=== PATIENT | female | born 1955 | race Caucasian/White ===

== ENCOUNTER → 2016-09-13 | Outpatient (CLI) | payer OTHER ==
[~2016-09-13] MED LIST: AMBI10TA PO; ASCO500C PO; ATEN25TA PO; CELE200C PO; CYMB30CA PO; DIAZ5 PO; DONE5TAB7 PO; ESTR0.5T PO; ESTR42.5V VAGINAL; FURO20TA PO; GABA400C5 PO; GABA800T PO; GEMF600T PO; HYDR-3534 PO; HYDR25TA5 PO; KEPP10002 PO; VITA250T3 PO
[2016-09-13 15:31] LABS: AUTOMATED NEUTROPHIL # 2.7 TH/MM3 (1.8-7.7); BASOPHIL # 0.1 TH/MM3 (0-0.2); BASOPHIL % 1.3 % (0.0-2.0); EOSINOPHIL # 0.1 TH/MM3 (0-0.4); EOSINOPHIL % 1.8 % (0.0-4.0); HEMATOCRIT 41.2 % (35.0-46.0); HEMO FLAGS DIFF FINAL; LYMPH % 40.1 % (9.0-44.0); LYMPHOCYTE # 2.2 TH/MM3 (1.0-4.8); MEAN CELL VOLUME 93.3 FL (80.0-100.0); MEAN CORPUSCULAR HEMOGLOBIN 31.5 PG (27.0-34.0); MEAN CORPUSCULAR HGB CONC 33.7 % (32.0-36.0); MONO % 7.2 % (0.0-8.0); NEUT % 49.6 % (16.0-70.0); PLATELET COUNT 337 TH/MM3 (150-450); RED BLOOD COUNT 4.41 MIL/MM3 (4.00-5.30); RED CELL DISTRIBUTION WIDTH 12.7 % (11.6-17.2); WHITE BLOOD COUNT 5.4 TH/MM3 (4.0-11.0)
[2016-09-13 15:32] LABS: BACTERIA, URINE RARE /hpf; BLOOD, URINE NEG (NEG); COMMENT (UR) CULT NOT INDICATED; CULTURE IF INDICATED CULT NOT INDICATED; GLUCOSE,URINE NEG (NEG); KETONE, URINE NEG (NEG); NITRITE,URINE NEG (NEG); PH, URINE 5.5 (5.0-8.5); SQUAMOUS EPITHELIAL CELL URINE 1 /hpf (0-5); URINE COLOR LIGHT-YELLOW (YELLW/STRAW)
[2016-09-13 15:53] LABS: ANION GAP 7 MEQ/L (5-15); AST (GOT) 16 U/L (15-37); BLOOD UREA NITROGEN 18 MG/DL (7-18); CHLORIDE 102 MEQ/L (98-107); GLOMERULAR FILTRATION RATE 74 ML/MIN (>89); GLUCOSE,FASTING 88 MG/DL (74-99); POTASSIUM 3.9 MEQ/L (3.5-5.1); SODIUM (NA) 140 MEQ/L (136-145)
[2016-09-13 15:56] LABS: ALKALINE PHOSPHATASE 93 U/L (45-117); ALT (GPT) 32 U/L (10-53); TOTAL BILIRUBIN ADULT 0.3 MG/DL (0.2-1.0)
--- NOTE | 2016-09-14 20:19 | EKG ---
Date Performed: 09/13/2016 Time Performed: 14:10:33 PTAGE: 61 years EKG: Sinus rhythm WITH SINUS ARRHYTHMIA LOW QRS VOLTAGE IN PRECORDIAL LEADS DELAYED R WAVE PROGRESSION BORDERLINE ECG Compared to prior tracing no significant change DOCTOR: Devorah Garcia Interpretating Date/Time 09/14/2016 20:19:03
== END ==
LOC: CPRE 13:36
PROVIDERS: ATTEND Obstetrics & Gynecology Gynecology
DX: Z01.810 Encounter for preprocedural cardiovascular examination (principal); Z01.812 Encounter for preprocedural laboratory examination; N81.10 Cystocele, unspecified; I49.8 Other specified cardiac arrhythmias
CPT/HCPCS: 36415; 80053; 81001; 85025; 93005

== ENCOUNTER → 2016-09-21 | Day surgery (SDC) | payer OTHER ==
--- NOTE | 2016-09-13 14:44 | MH ---
cc: DEANA SANTILLAN MD DATE OF ADMISSION: 09/21/2016 DATE OF : 1955 REASON FOR ADMISSION Anterior repair. HISTORY OF PRESENT ILLNESS The patient is a 61-year-old white female, 4, para 4, who has had issues with pelvic organ prolapse in the past. Last year she had a posterior repair and did well with that except she had a seizure postoperatively. She noted a recurrence of pelvic pressure, was examined and found to have anterior compartment prolapse. She tried a pessary and that did not work well and she wants to proceed now with surgical correction. PAST MEDICAL HISTORY 1. Seizure disorder; last seizure was at least 6 months ago. Presently on antiseizure meds. 2. Hypertension. 3. Depression. 4. Hypercholesterolemia. ALLERGIES 1. LATEX. 2. PENICILLIN. 3. ASPIRIN. 4. CODEINE. 5. CLINDAMYCIN. MEDICATIONS 1. Hydrocodone p.r.n. 2. Celebrex 20 mg q. day. 3. Estradiol 0.5 mg q. day. 4. Fluoxetine 30 mg q. day. 5. Ambien 10 mg q.h.s. 6. Keppra 1000 mg t.i.d. 7. Gabapentin 400 mg t.i.d. PAST SURGICAL HISTORY 1. Tonsillectomy. 2. Cholecystectomy. 3. Tubal ligation. 4. Hysterectomy. 5. Posterior repair. FAMILY HISTORY Noncontributory. SOCIAL HISTORY [id number] smoking history, not presently smoking for the last year. OB HISTORY Four vaginal deliveries. REVIEW OF SYSTEMS As above. No chest pain, orthopnea, PND. No nausea, vomiting, fever or chills. No vaginal bleeding or discharge. The main issue is pelvic pressure and discomfort. Otherwise a 14-point review is negative. PHYSICAL EXAMINATION VITAL SIGNS: She is afebrile. Vital signs stable. Weight is 154, height 5.3, BMI 27.5. Blood pressure 140/80. GENERAL: The patient is alert and oriented, in no acute distress. No sign of cognitive dysfunction or depression. HEENT: Within normal limits. NECK: Supple. No JVD. CHEST: Clear. HEART: Regular rhythm. ABDOMEN: Soft, nontender. No hepatosplenomegaly. BACK: No CVA tenderness. PELVIC: Exam will be detailed under anesthesia. In the office we note POP-Q score Aa is +1; Ap is -3; point C is -5. Further exam under anesthesia. EXTREMITIES: Normal. SKIN: Without rashes. NEUROLOGIC: Nonfocal. No DVT signs. ASSESSMENT Patient with anterior compartment prolapse, symptomatic, stage II. We discussed options for management and treatment. She has failed pessary management and wants to proceed with surgical correction. She is aware of the risks, benefits and alternatives of planned procedure including damage to surrounding organs, bleeding, infection, dyspareunia, de sunil stress incontinence and failure of repair. She is also aware that the perioperative state is at an increased risk for seizure disorder. PLAN At this point we anticipate outpatient procedure. We will use DVT prophylaxis with sequential compression device and antibiotic prophylaxis with Flagyl 500 mg IV. She is going to take her Keppra on the night prior to surgery and the morning of surgery, and we hope to avoid any repeat of the seizure activity. MD LUCAS Michelle/BT /2:12 PM /2:26 PM
[~2016-09-21] VITALS: Ht 160 cm; Wt 76.8 kg
[~2016-09-21] MED LIST changes: +DEXAMETHASONE SOD PHOS 4 MG/ML VIAL ONE; +DO NOT ADM ANY ANTICOAGULANT DRUGS XX PRN; -ESTR42.5V VAGINAL; +FAMOTIDINE 20 MG/2 ML VIAL ONE; +FLUORESCEIN SOD 10% SOLN 500 MG/5 ML AMP IV ONE; -HYDR-3534 PO; +INSULIN HUMAN REGULAR 1,000 UNITS/10 ML VIAL SQ PRN; +KETOROLAC TROMETHAMINE 30 MG/ML (IVP) VIAL IV PUSH PRN; +KETOROLAC TROMETHAMINE 60 MG/2 ML (IM) VIAL IM ONE; +KETOROLAC TROMETHAMINE 60 MG/2 ML (IM) VIAL IM SCH; +LACTATED RINGER'S 1000 ML IV SCH; +LIDOCAINE 1%/EPINEPHrine 1:100,000 SOLN 20 ML VIAL ONE; +LIDOCAINE 1%/EPINEPHrine 1:100,000 SOLN 30 ML VIAL ONE; +METHYLENE BLUE 100 MG/10 ML VIAL OTHER ONE; +METOPROLOL TARTRATE 25 MG TAB PO PRN; +METRONIDAZOLE 500 MG/100 ML ISONTONIC SOLN IV SCH; +MIDAZOLAM HCL 2 MG/2 ML VIAL ONE; +NEOSTIGMINE 3 MG/3 ML SYR IV ONE; +ONDANSETRON HCL 4 MG/2 ML VIAL IV PUSH ONE; +ONDANSETRON HCL 4 MG/2 ML VIAL IV PUSH PRN; +PROPOFOL 200 MG/20 ML AMP IV ONE; +SODIUM CHLORID 0.9% 500 ML IV SCH; +traMADol HCL 50 MG TAB PO PRN
[2016-09-21 08:26] VITALS: BP 122/61; PULSE 72; RESP 16; TEMP 97.9; O2SAT 96
[2016-09-21 15:20] VITALS: BP 103/68; PULSE 92; RESP 16; TEMP 97.8; O2SAT 94
--- NOTE | 2016-09-22 13:10 | MP ---
cc: DEANA SANTILLAN MD DATE OF SURGERY 09/21/2016 PREOPERATIVE DIAGNOSES 1. Symptomatic cystocele. 2. History of seizure disorder. POSTOPERATIVE DIAGNOSES 1. Symptomatic cystocele. 2. Rectocele. 3. History of seizure disorder. PROCEDURE 1. Anterior and posterior repair with enterocele repair. 2. Diagnostic cystoscopy. SURGEON Dr. Santillan ANESTHESIA General endotracheal. ARC WELDER [place] staff x 2 FLUIDS 1200 cc crystalloid BLOOD LOSS 25 cc. URINE OUTPUT 600 cc. FINDINGS 1. External genitalia poorly estrogenized. 2. POP-Q score: Aa is 0, Ap is -1. Point C is -8. Total vaginal length is 9. Genital hiatus is 7. Perineal body is 4. Following repair, Aa is -3, Ap is -3. Point C is -8. Total vaginal length is 9. Genital hiatus is 5. 3. Rectal exam normal following repair. 4. The cystoscopy shows normal trigone, good coaptation of urethra. Ureteral orifices patent x 2. Dome and base of bladder normal. SPECIMENS Vaginal mucosa trimmed but not sent. DISPOSITION To Recovery stable. COUNTS Needle, instrument and sponge counts correct. DRAINS Zaman catheter. COMPLICATIONS None. ANTIBIOTIC PROPHYLAXIS Flagyl 500 mg IV. DVT PROPHYLAXIS Sequential compression device. TIME-OUT PROCEDURE Per protocol. SUMMARY OF INDICATIONS FOR PROCEDURE The patient with symptomatic pelvic prolapse, anterior compartment. The patient has a history of postoperative seizure. She has been cleared by Neurology and is on anti-seizure medications. PROCEDURE The patient was taken to the operating theatre, identified, prepped and draped in a fashion appropriate for the planned procedure. She was placed in dorsal lithotomy position with careful attention paid to placement of the legs in stirrups to avoid undue stress to sensitive neurovascular structures. The above findings were noted, neurovascular integrity documented. A Zaman catheter was placed, methylene blue was instilled into the bladder. The examination under anesthesia showed anterior compartment defect that we had noticed in the office, also some degree of posterior compartment defect which was not apparent preoperatively. The anterior compartment was identified, infiltrated with epinephrine and lidocaine solution. A midline incision was made from the vaginal apex to the approximately 1 cm from the urethral meatus. The bladder was reflected from the mucosa and there was no spill of methylene blue with dissection. The perivesical tissues were plicated with 2-0 delayed absorbable suture. The vaginal mucosa was trimmed and then closed with a running 0 Vicryl suture. The hemostatic Matrix was used for hemostasis to obviate the need for packing. Following repair, the patient received IV fluorescein 1 cc. We placed a 17-Italian bridge, a 70-degree scope. The above findings noted. The posterior compartment did have some more pronounced defect than we had noted previously and in light of the patient's wishes of "fixing everything that needs to be fixed", we decided to perform posterior repair. Epinephrine and lidocaine was infiltrated in the vaginal mucosa posteriorly. Incision was taken up to the apex. Plication of the perirectal tissues was accomplished, also enterocele was corrected as well without difficulty. Hemostatic matrix was used for hemostasis. The vaginal mucosa was closed after a slight amount of trimming and modified perineorrhaphy was performed. The patient tolerated the procedure well. The suture line was intact. No undue bleeding. Rectal exam normal. The patient was reversed from anesthesia, taken to the recovery room in stable condition. Anesthesia is aware of her seizure history as is PACU. If she procedures well through the postop course without any seizure activity, she will be discharged home same day. MD LUCAS Michelle/XIANG /12:16 PM /12:51 PM
== END | disposition home or self-care (01) ==
LOC: HSDC 07:34
PROVIDERS: ATTEND Obstetrics & Gynecology Gynecology
DX: N81.10 Cystocele, unspecified (principal); G40.909 Epilepsy, unspecified, not intractable, without status epilepticus; N81.6 Rectocele
CPT/HCPCS: 00942; 57265; J1100; J1885; J2250; J2405; J2710; J3010; J7120

== ENCOUNTER → 2017-06-15 | Day surgery (SDC) | payer OTHER ==
[~2017-06-15] VITALS: Ht 160 cm; Wt 82.0 kg
[~2017-06-15] MED LIST changes: -ASCO500C PO; +CHLORHEXIDINE GLUCONATE 2 % 1 PACK (2 CLOTHS) TOPICAL PRN; -DEXAMETHASONE SOD PHOS 4 MG/ML VIAL ONE; -DO NOT ADM ANY ANTICOAGULANT DRUGS XX PRN; -FAMOTIDINE 20 MG/2 ML VIAL ONE; +FLUC100T2 PO; +FLUO.05%ST TOPICAL; -FLUORESCEIN SOD 10% SOLN 500 MG/5 ML AMP IV ONE; +FLURBIPROFEN 0.03% OPHT SOLN 2.5 ML BTL RIGHT EYE SCH; +FLUT50SP EACH NARE; -FURO20TA PO; -GABA400C5 PO; -GABA800T PO; -INSULIN HUMAN REGULAR 1,000 UNITS/10 ML VIAL SQ PRN; -KETOROLAC TROMETHAMINE 30 MG/ML (IVP) VIAL IV PUSH PRN; -KETOROLAC TROMETHAMINE 60 MG/2 ML (IM) VIAL IM ONE; -KETOROLAC TROMETHAMINE 60 MG/2 ML (IM) VIAL IM SCH; +LACO100 PO; +LACTATED RINGER'S 1000 ML IV PRN; -LACTATED RINGER'S 1000 ML IV SCH; -LIDOCAINE 1%/EPINEPHrine 1:100,000 SOLN 20 ML VIAL ONE; -LIDOCAINE 1%/EPINEPHrine 1:100,000 SOLN 30 ML VIAL ONE; +LIDOCAINE HCL 1% PF 30 ML VIAL ONE; +LIDOCAINE HCL 2% JELLY 5 ML SYRINGE TOPICAL ONE; -METHYLENE BLUE 100 MG/10 ML VIAL OTHER ONE; -METRONIDAZOLE 500 MG/100 ML ISONTONIC SOLN IV SCH; -MIDAZOLAM HCL 2 MG/2 ML VIAL ONE; -NEOSTIGMINE 3 MG/3 ML SYR IV ONE; -ONDANSETRON HCL 4 MG/2 ML VIAL IV PUSH ONE; -ONDANSETRON HCL 4 MG/2 ML VIAL IV PUSH PRN; +POVIDONE IODINE 5% (ANTISEPSIS KIT) 4 APPLICATIONS EACH NARE PRN; +PROPARACAINE HCL 0.5% OPHT SOLN 15 ML BTL RIGHT EYE ONE; -PROPOFOL 200 MG/20 ML AMP IV ONE; +SODIUM CHLORID 0.9% 500 ML IV PRN; -SODIUM CHLORID 0.9% 500 ML IV SCH; +TOBRAMYCIN/DEXAMETHASONE OPTH OINT 3.5 GM TUBE ONE; +VOLT1GEL16 TOPICAL; -traMADol HCL 50 MG TAB PO PRN
[2017-06-15] MEDS: TROPICAMIDE 1% OPHT SOLN 15 ML BTL RIGHT EYE SCH ×4 (06:45→07:00)
[2017-06-15] MEDS: PHENYLEPHRINE HCL 10% OPTH SOLN 5 ML BTL RIGHT EYE SCH ×4 (06:45→07:00)
[2017-06-15] MEDS: CYCLOPENTOLATE HCL 1% OPHT SOLN 2 ML BTL RIGHT EYE SCH ×4 (06:45→07:00)
[2017-06-15 09:05] VITALS: BP 111/70; PULSE 73; RESP 16; TEMP 98.8; O2SAT 100
--- NOTE | 2017-06-15 13:06 | MP ---
cc: KEVYN DENNISON M.D. [facility] #[id number] DATE OF SURGERY 06/15/2017 PREOPERATIVE DIAGNOSIS Visually significant cataract right eye. POSTOPERATIVE DIAGNOSIS Visually significant cataract right eye. OPERATION Phacoemulsification with posterior chamber lens implantation, right eye. SURGEON Kevyn Dennison MD ANESTHESIA Topical with MAC COMPLICATIONS None PROCEDURE After informed consent was obtained, the patient was brought into the operative suite and placed on appropriate monitors by the Anesthesia Service. The patient had been given dilating drops and topical lidocaine gel in the holding area. The patient's operative eye was then prepped and draped in the usual sterile fashion. A wire lid speculum was placed. Further 2% lidocaine was then dropped on the cornea prior to beginning the procedure. A paracentesis incision was made in the peripheral cornea with a 1 mm jocy keratome. The anterior chamber was filled with viscoelastic. The anterior chamber was then entered through a stepped, clear corneal incision using a sharp 3 mm jocy keratome. A circular tear capsulorrhexis was then made with a bent needle cystitome. Following hydrodissection of the lens nucleus with balance saline, phacoemulsification of the nucleus was performed using a modified chopping technique. The remaining cortex was removed with irrigation/aspiration. The prior two procedures were both performed using the handpieces of the [employer] phaco unit. The capsular bag was then filled with viscoelastic. The intraocular lens was then injected into the capsular bag and positioned. The type of intraocular lens and its power can be found elsewhere in this chart. The remaining viscoelastic was then removed from the anterior chamber with the IA handpiece. The anterior chamber was reformed with balanced saline. The wound was then closed securely with stromal hydration. It was found to be watertight to an intraocular pressure of at least 30 mmHg by palpation. A small amount of balanced salt solution was then removed through the paracentesis site and the intraocular pressure at the end of the case was approximately 20 by palpation. All drapes were then removed. TobraDex ointment was then placed in the eye, which was closed beneath a semi-pressure patch dressing. The patient tolerated this procedure well and left the operating room awake and alert. The patient is to follow-up in my office in the morning. MD SUNSHINE Dow/MARCIO /10:43 AM /12:51 PM
== END | disposition home or self-care (01) ==
LOC: PHSDC 06:03
PROVIDERS: ATTEND Optometrist Occupational Vision
DX: H25.811 Combined forms of age-related cataract, right eye (principal)
CPT/HCPCS: 00142; 66984; J7040; V2632